=== PATIENT | male | born 1955 ===

== ENCOUNTER → 2020-12-28 | Outpatient (CLI) | payer OTHER | END | disposition home or self-care (01) | LOC: MAMO-SONO 08:15 → SONOGRAMA 08:16 | DX: R10.9 Unspecified abdominal pain (principal) ==

== ENCOUNTER → 2023-03-18 | Emergency (ER) | payer OTHER ==
[~2023-03-18] VITALS: Ht 175.3 cm; Wt 49.9 kg
[~2023-03-18] MED LIST: ADULT LOW DOSE81 M1 PO; ALDACTONE25 MG PO; ATORVASTATIN CA20 MG PO; CARVEDILOL ER40 MG PO; ENALAPRIL MALE2.5 MG PO
== END | disposition home or self-care (01) ==
LOC: ER 13:30
DX: S40.011A Contusion of right shoulder, initial encounter (principal); W20.8XXA Other cause of strike by thrown, projected or falling object, initial encounter; Y93.9 Activity, unspecified; Y92.9 Unspecified place or not applicable; Y99.9 Unspecified external cause status
CPT/HCPCS: 71046; 73030; 96372; 99284; J3490

== ENCOUNTER 2023-06-21 07:53 | Outpatient (CLI) | payer OTHER | END 2023-06-21 07:58 | disposition home or self-care (01) | LOC: RAD 07:53 | PROVIDERS: ATTEND General Practice | DX: J44.9 Chronic obstructive pulmonary disease, unspecified (principal) ==

== ENCOUNTER 2023-09-19 07:22 | Outpatient (CLI) | payer OTHER | END 2023-09-19 07:45 | disposition home or self-care (01) | LOC: TOM 07:22 | PROVIDERS: ATTEND Internal Medicine Pulmonary Disease | DX: R06.02 Shortness of breath (principal); Z72.0 Tobacco use ==

== ENCOUNTER 2024-09-25 07:18 | Outpatient (CLI) | payer OTHER | END 2024-09-25 07:23 | disposition home or self-care (01) | LOC: TOM 07:18 | PROVIDERS: ATTEND Internal Medicine Pulmonary Disease | DX: R06.02 Shortness of breath (principal); Z87.891 Personal history of nicotine dependence; J43.2 Centrilobular emphysema ==

== ENCOUNTER 2025-06-23 13:04 | Outpatient (CLI) | payer OTHER ==
[2025-06-23 14:40] LABS: CREATININE SERUM 1.05 mg/dL (0.70-1.30)
== END 2025-06-23 13:08 | disposition home or self-care (01) ==
LOC: LAB 13:04
PROVIDERS: ATTEND Radiology Diagnostic Radiology
DX: I71.21 Aneurysm of the ascending aorta, without rupture (principal)

== ENCOUNTER 2025-06-24 07:18 | Outpatient (CLI) | payer OTHER | END 2025-06-24 13:45 | disposition home or self-care (01) | LOC: TOM 07:18 | PROVIDERS: ATTEND Internal Medicine | DX: I71.21 Aneurysm of the ascending aorta, without rupture (principal) | CPT/HCPCS: 71275; Q9965 ==